=== PATIENT | female | born 1945 | race Caucasian/White ===

== ENCOUNTER 2021-08-11 16:40 | Inpatient (IN) | payer MEDICARE, BC ==
[~2021-08-11] VITALS: Ht 162.6 cm; Wt 68.0 kg
[~2021-08-11 16:40] MED LIST: AMLO-213 PO; FLUO40CA49 PO; LOSA50TA39 PO; METF-881 PO
[2021-08-11] MEDS ORDERED: OMEP40CA21 PO (17:01)
[2021-08-11] MEDS ORDERED: ICOS0.5C MT (17:01)
[2021-08-11] MEDS ORDERED: SPIR1TAB4 PO (17:08)
[2021-08-11] MEDS ORDERED: EZET10TA32 PO (17:08)
[2021-08-11] MEDS ORDERED: TELM80TA9 PO (17:08)
[2021-08-11] MEDS ORDERED: ONDANSETRON HCL/PF 4 MG/2 ML VIAL IVP ONE (17:30)
[2021-08-11] MEDS ORDERED: IV NS 0.9% 1,000 ML BAG IV ONE ×2 (17:30→20:30)
--- NOTE | 2021-08-11 17:30 | NUR ---
iv line started blood drawn and sent to lab.
[2021-08-11] MEDS ORDERED: ONDANSETRON HCL/PF 4 MG/2 ML VIAL ONE (17:33)
--- NOTE | 2021-08-11 17:35 | NUR ---
unable to provide urine sample at this time.
[2021-08-11 18:00] LABS: BASOPHILS % (AUTO) 0.3 % (0.0-2.0); EOSINOPHILS % (AUTO) 0.2 % (0.0-6.0); HEMATOCRIT 41 % (33-45); HEMOGLOBIN 13.9 g/dL (11.5-14.8); LYMPHOCYTES # (AUTO) 2.1 K/uL (0.8-4.8); LYMPHOCYTES % (AUTO) 32.6 % (20.0-44.0); MEAN CORPUSCULAR HGB CONC 34 g/dl (31.0-36.0); MEAN CORPUSCULAR VOLUME 87 fL (82-100); MONOCYTES # (AUTO) 0.9 K/uL (0.1-1.30); MONOCYTES % (AUTO) 13.4 % (2.0-12.0); NEUTROPHILS # (AUTO) 3.5 K/uL (1.8-8.9); NEUTROPHILS % (AUTO) 53.5 % (43.0-81.0); PLATELET COUNT (AUTO) 404 K/uL (150-450); RED BLOOD CELL COUNT(AUTO) 4.71 MIL/uL (4.0-5.2); WHITE BLOOD COUNT (AUTO) 6.6 K/uL (4.3-11.0)
--- NOTE | 2021-08-11 18:04 | NUR ---
pt to radiology for abdominal ct scan via [facility].
[2021-08-11 18:29] LABS: CALCIUM, SERUM 8.2 mg/dL (8.5-10.1); CARBON DIOXIDE 18 mmol/L (21-32); CHLORIDE 101 mmol/L (98-107); CREATININE 1.5 mg/dL (0.6-1.3); GLUCOSE 106 mg/dL (74-106); SODIUM SERUM 132 mmol/L (136-145); UREA NITROGEN, BLOOD 42 mg/dL (7-18)
[2021-08-11 18:33] LABS: POTASSIUM 2.7 mmol/L (3.5-5.1)
[2021-08-11 18:35] LABS: ALANINE AMINOTRANSFERASE 48 U/L (12-78); ALBUMIN 3.5 g/dL (3.4-5.0); ALKALINE PHOSPHATASE 108 U/L (46-116); ASPARTATE AMINOTRANSFERASE 38 U/L (15-37); BILIRUBIN,DIRECT 0.2 mg/dL (0.0-0.2); BILIRUBIN,TOTAL 0.5 mg/dL (0.2-1.0); LIPASE 249 U/L (73-393); TOTAL PROTEIN, SERUM 7.7 g/dL (6.4-8.2)
--- NOTE | 2021-08-11 19:00 | NUR ---
PT C/O @ 5188 "i think I had food poisoning last sunday nausea/vomiting. NOT able to tolerate food and today my kidneys were hurting"
--- NOTE | 2021-08-11 19:12 | NUR ---
report to night shift supervisor nurse noam FORD for ambrosio.
[2021-08-11] MEDS ORDERED: PIPERACILLIN /TAZOBACTAM 3.375 G in IV D5W 50 ML IV ONE (19:30)
[2021-08-11] MEDS ORDERED: PIPERACILLIN /TAZOBACTAM 3.375 G VIAL IV ONE (19:43)
[2021-08-11 19:49] LABS: BILIRUBIN,URINE NEGATIVE (NEGATIVE); COLOR,URINE YELLOW (YELLOW); LEUKOCYTE ESTERASE ,URINE NEGATIVE (NEGATIVE); NITRITE, URINE NEGATIVE (NEGATIVE); PH,URINE 5.5 (5.0-8.0); PROTEIN,URINE TRACE mg/dl (NEGATIVE); UGLUCOSE NEGATIVE (NEGATIVE); UROBILINOGEN,URINE 0.2 EU/dL (0.2)
[2021-08-11 20:20] LABS: RBC,URINE 0-2 /HPF (0-2); WBC,URINE 0-2 /HPF (0-3)
[2021-08-11 20:21] LABS: BACTERIA,URINE Few /HPF (None Seen); HYALINE CASTS, URINE Few /LPF (None Seen); SQUAMOUS EPITHELIAL CELL,UR Few /HPF (None Seen)
[2021-08-11] MEDS ORDERED: POTASSIUM CL. PREMIX PERIPHER. 100 ML ONE (20:53)
[2021-08-11] MEDS ORDERED: POTASSIUM CL. PREMIX PERIPHER. 50 ML ONE (20:53)
[2021-08-11] MEDS ORDERED: Z GUARD REMEDY 4 OZ OINT TP PRN (21:00)
[2021-08-11] MEDS ORDERED: MAGNESIUM HYDROXIDE 30 ML UDC PO PRN (21:00)
[2021-08-11] MEDS ORDERED: ONDANSETRON HCL/PF 4 MG/2 ML VIAL IVP PRN (21:00)
[2021-08-11] MEDS ORDERED: ACETAMINOPHEN 325 MG TABLET PO PRN (21:00)
[2021-08-11] MEDS ORDERED: IV D5/0.45 NACL 1,000 ML IV PRN (21:00)
[2021-08-11] MEDS ORDERED: MAG HYDROX/AL HYDROX/SIMETH 30 ML UDC PO PRN (21:00)
[2021-08-11] MEDS: POTASSIUM CL. PREMIX PERIPHER. 50 ML IV SCH ×3 (21:06→23:06)
[2021-08-11] MEDS ORDERED: ENOXAPARIN SODIUM 60 MG/0.6 ML DISP.SYRIN SQ ONE (22:22)
--- NOTE | 2021-08-12 03:40 | NUR ---
PT SLEEPING COMFORTABLY BREATHING EVEN AND UNLABORED EASILY AROUSABLE. PT ON MONITOR AND ALL V/S STABLE. ALL PT NEEDS MET CALL LIGHT WITHIN REACH.
[2021-08-12 04:46] LABS: BASOPHILS % (AUTO) 0.5 % (0.0-2.0); EOSINOPHILS % (AUTO) 0.7 % (0.0-6.0); HEMATOCRIT 33 % (33-45); HEMOGLOBIN 11.2 g/dL (11.5-14.8); LYMPHOCYTES # (AUTO) 2.5 K/uL (0.8-4.8); LYMPHOCYTES % (AUTO) 36.7 % (20.0-44.0); MEAN CORPUSCULAR HGB CONC 34 g/dl (31.0-36.0); MEAN CORPUSCULAR VOLUME 87 fL (82-100); MONOCYTES # (AUTO) 1.1 K/uL (0.1-1.30); MONOCYTES % (AUTO) 16.3 % (2.0-12.0); NEUTROPHILS # (AUTO) 3.2 K/uL (1.8-8.9); NEUTROPHILS % (AUTO) 45.8 % (43.0-81.0); PLATELET COUNT (AUTO) 331 K/uL (150-450); WHITE BLOOD COUNT (AUTO) 6.9 K/uL (4.3-11.0)
[2021-08-12 05:08] LABS: ALBUMIN 2.6 g/dL (3.4-5.0); BILIRUBIN,TOTAL 0.2 mg/dL (0.2-1.0); CALCIUM, SERUM 7.6 mg/dL (8.5-10.1); CREATININE 1.1 mg/dL (0.6-1.3); MAGNESIUM 1.7 mg/dL (1.8-2.4); PHOSPHORUS 3.5 mg/dL (2.5-4.9); POTASSIUM 3.8 mmol/L (3.5-5.1)
[2021-08-12] MEDS ORDERED: PIPERACILLIN /TAZOBACTAM 3.375 G in IV D5W 50 ML IV ONE (05:30)
[2021-08-12] MEDS ORDERED: PIPERACILLIN /TAZOBACTAM 3.375 G VIAL IV ONE (05:34)
[2021-08-12 06:50] LABS: EOSINOPHILS % (MANUAL) 1 % (0-4); LYMPHOCYTES % (MANUAL) 34 % (16-48); MONOCYTES % (MANUAL) 7 % (0-11.0); NEUTROPHILS % (MANUAL) 56 (42-76); REACTIVE LYMPHOCYTES 2 % (0-0)
--- NOTE | 2021-08-12 07:25 | NUR ---
REPORT GIVEN TO VITALY LEE FOR TREVON
--- NOTE | 2021-08-12 07:28 | NUR ---
RECEIVED REPORT FROM LOGAN MORA FOR TREVON. PT ASLEEP ON BED EASILY AROUSABLE, NOT IN RESPIRATORY DISTRESS, V/S STABLE, KEPT RESTED AND COMFORTABLE. WILL CONTINUE TO MONITOR.
[2021-08-12] MEDS ORDERED: PANTOPRAZOLE 40 MG TABLET.DR PO SCH (07:30)
[2021-08-12] MEDS ORDERED: METFORMIN 500 MG TABLET ONE (07:43)
[2021-08-12] MEDS ORDERED: AMLODIPINE BESYLATE 5 MG TABLET ONE (07:43)
[2021-08-12] MEDS ORDERED: EZETIMIBE 10 MG TABLET ONE (07:43)
[2021-08-12] MEDS ORDERED: ENOXAPARIN SODIUM 40 MG/0.4 ML DISP.SYRIN SQ ONE (07:43)
[2021-08-12] MEDS ORDERED: PANTOPRAZOLE 40 MG TABLET.DR PO ONE (07:44)
[2021-08-12] MEDS ORDERED: FLUOXETINE HCL 20 MG CAPSULE PO SCH (09:00)
[2021-08-12] MEDS ORDERED: AMLODIPINE BESYLATE 10 MG TABLET PO SCH (09:00)
[2021-08-12] MEDS ORDERED: EZETIMIBE 10 MG TABLET PO SCH (09:00)
[2021-08-12] MEDS ORDERED: ENOXAPARIN SODIUM 40 MG/0.4 ML DISP.SYRIN SQ SCH (09:00)
[2021-08-12] MEDS ORDERED: LOSARTAN POTASSIUM 50 MG TABLET PO SCH (09:00)
[2021-08-12] MEDS ORDERED: [UNRECOGNIZED DRUG - OTHER] PO SCH (09:00)
[2021-08-12] MEDS ORDERED: METFORMIN XR 500 MG TAB.SR.24H PO SCH (09:00)
[2021-08-12] MEDS ORDERED: Medication Not On Formulary EA (Icosapent Ethyl (Vascepa) 2 CAP) MT SCH (09:00)
[2021-08-12] MEDS: Magnesium 1GM/D5W 100ML PREMIX 100 ML IV SCH ×2 (10:00→11:08)
[2021-08-12] MEDS ORDERED: SPIRONOLACTONE 25 MG TABLET PO SCH (10:00)
[2021-08-12] MEDS ORDERED: HYDROCHLOROTHIAZIDE 25 MG TABLET PO SCH (10:00)
[2021-08-12] MEDS ORDERED: CIPR500T5 PO (10:04)
[2021-08-12] MEDS ORDERED: METR500T PO (10:04)
[2021-08-12] MEDS ORDERED: Magnesium 1GM/D5W 100ML PREMIX 200 ML IV ONE (10:52)
[2021-08-12] MEDS ORDERED: HYDROCHLOROTHIAZIDE 25 MG TABLET ONE (11:02)
[2021-08-12] MEDS ORDERED: SPIRONOLACTONE 25 MG TABLET ONE (11:03)
[2021-08-12] MEDS ORDERED: PIPERACILLIN /TAZOBACTAM 3.375 G in IV D5W 50 ML IV SCH (12:00)
[2021-08-12] MEDS ORDERED: PIPERACILLIN /TAZOBACTAM 3.375 G in IV D5W 100 ML IV SCH (12:00)
--- NOTE | 2021-08-12 13:04 | NUR ---
IV removed. Catheter intact and site benign. Pressure and 4x4 applied to site. No bleeding noted. Patient discharged to home in stable condition. Written and verbal after care instructions given. Patient verbalizes understanding of instruction.
[2021-08-12 13:05] VITALS: BP 128/71
[2021-08-13 10:42] LABS: ABG BASE EXCESS -9.4 mmol/L; ABG PCO2 27.4 mmHg (35.0-45.0); ABG PH 7.348 (7.350-7.450); ABG PO2 85.6 mmHg (75.0-100.0); COHb 0.3 % (0.5-1.5); MetHb 1.2 % (0.0-1.5); O2Hb 94.4 % (94.0-97.0); SITE, ABG Left Radial; VENT MODE, BG RA
== END 2021-08-12 13:05 | disposition home or self-care (01) | DRG 391 ==
LOC: ER 16:47 → TRANSITION 08-12 04:55
PROVIDERS: ADMIT Hospitalist; ATTEND Internal Medicine
DX: K57.32 Diverticulitis of large intestine without perforation or abscess without bleeding (principal); N17.0 Acute kidney failure with tubular necrosis; E87.1 Hypo-osmolality and hyponatremia; E11.9 Type 2 diabetes mellitus without complications; K21.9 Gastro-esophageal reflux disease without esophagitis; I10 Essential (primary) hypertension; E87.6 Hypokalemia; E78.5 Hyperlipidemia, unspecified; Z20.822 Contact with and (suspected) exposure to COVID-19; Z79.84 Long term (current) use of oral hypoglycemic drugs
CPT/HCPCS: 36415; 36600; 80048-TC; 80053-TC; 80076-TC; 81001; 83690-TC; 83735-TC; 84100-TC; 84484-TC; 85025-TC; 87081-TC; 87086-TC; C9803; G0378; J1650; J2405; J2543; J3475; J3480; J3490; J7030; J7060; L0172

== ENCOUNTER 2024-09-29 16:51 | Emergency (ER) | payer BC, MEDICARE ==
[~2024-09-29] VITALS: Ht 167.6 cm; Wt 64.9 kg
[~2024-09-29 16:51] MED LIST changes: +CIPR500T5 PO; +EZET10TA32 PO; +ICOS0.5C MT; -LOSA50TA39 PO; +METR500T PO; +OMEP40CA21 PO; +SPIR1TAB4 PO; +TELM80TA9 PO
[2024-09-29] MEDS ORDERED: methylPREDNISolone SOD SUCC 125 MG/2ML VIAL ONE (17:48)
[2024-09-29] MEDS ORDERED: FAMOTIDINE/PF INJ 20 MG/2 ML VIAL IV ONE (17:49)
[2024-09-29] MEDS ORDERED: ALBUTEROL FS 2.5 MG/3 ML VIAL.NEB ONE ×2 (17:53)
[2024-09-29 17:55] VITALS: O2SAT 97
[2024-09-29] MEDS: ALBUTEROL FS 2.5 MG/3 ML VIAL.NEB NEB ONE (17:55)
[2024-09-29 18:05] VITALS: O2SAT 99
[2024-09-29] MEDS: FAMOTIDINE/PF INJ 20 MG/2 ML VIAL IV ONE (18:18)
[2024-09-29] MEDS: IV NS 0.9% 1,000 ML BAG IV ONE (18:18)
[2024-09-29] MEDS: methylPREDNISolone SOD SUCC 125 MG/2ML VIAL IV ONE (18:19)
[2024-09-29 18:28] LABS: CALCIUM, SERUM 9.4 mg/dL (8.5-10.1); CREATININE 1.1 mg/dL (0.6-1.3); INR 0.98 (0.91-1.10); PARTIAL THROMBOPLASTIN TIME 23.4 SEC (24.3-34.3); POTASSIUM 3.3 mmol/L (3.5-5.1); PROTHROMBIN TIME 10.4 SECS (9.2-11.1)
[2024-09-29 18:32] LABS: BASOPHILS # (AUTO) 0.1 K/uL (0.0-0.2); BASOPHILS % (AUTO) 0.6 % (0.0-2.0); EOSINOPHILS % (AUTO) 0.4 % (0.0-6.0); HEMATOCRIT 37 % (33-45); HEMOGLOBIN 12.4 g/dL (11.5-14.8); LYMPHOCYTES # (AUTO) 2.1 K/uL (0.8-4.8); LYMPHOCYTES % (AUTO) 20.9 % (20.0-44.0); MEAN CORPUSCULAR HEMOGLOBIN 29 PG (26.0-33.0); MEAN CORPUSCULAR HGB CONC 34 g/dl (31.0-36.0); MEAN CORPUSCULAR VOLUME 86 fL (82-100); MONOCYTES # (AUTO) 0.7 K/uL (0.1-1.30); MONOCYTES % (AUTO) 7.1 % (2.0-12.0); NEUTROPHILS # (AUTO) 7.3 K/uL (1.8-8.9); PLATELET COUNT (AUTO) 324 K/uL (150-450); RED BLOOD CELL COUNT(AUTO) 4.25 MIL/uL (4.0-5.2); RED CELL DISTRIBUTION WIDTH 13.3 % (11.5-15.0); WHITE BLOOD COUNT (AUTO) 10.2 K/uL (4.3-11.0)
[2024-09-29 18:34] LABS: ALBUMIN 3.5 g/dL (3.4-5.0); BILIRUBIN,DIRECT 0.1 mg/dL (0.0-0.2); BILIRUBIN,TOTAL 0.3 mg/dL (0.2-1.0); TOTAL PROTEIN, SERUM 7.3 g/dL (6.4-8.2)
[2024-09-29] MEDS ORDERED: FAMO-131 PO (19:52)
[2024-09-29 19:54] VITALS: BP 122/83; TEMP 98.3; O2SAT 99
== END 2024-09-29 20:02 | disposition home or self-care (01) ==
LOC: ER 16:56
DX: R05.9 Cough, unspecified (principal); J45.901 Unspecified asthma with (acute) exacerbation; K92.0 Hematemesis; I10 Essential (primary) hypertension; E78.5 Hyperlipidemia, unspecified; Z79.84 Long term (current) use of oral hypoglycemic drugs; Z79.899 Other long term (current) drug therapy; Z85.828 Personal history of other malignant neoplasm of skin; Z87.11 Personal history of peptic ulcer disease; Z88.5 Allergy status to narcotic agent; Z88.8 Allergy status to other drugs, medicaments and biological substances
CPT/HCPCS: 99285; 96374; 71045; 96361; 96375; 93005 ×2; 85025; 80048; 80076; 36415; 85730; 86850; 94640; J3490; J7030; J2919